=== PATIENT | male | born 1945 ===

== ENCOUNTER 2020-10-22 18:00 | Emergency (ER) | payer OTHER ==
[2020-10-22 19:03] LABS: COVID AG,FIA SOURCE NASOPHARYNGEAL
== END 2020-10-22 22:36 ==
LOC: EMS 18:00
DX: I46.9 Cardiac arrest, cause unspecified (principal); Z20.822 Contact with and (suspected) exposure to COVID-19
CPT/HCPCS: 87426; 92950; 99291; U0003; Z7502